=== PATIENT | male | born 2000 | race African-American/Black ===

== ENCOUNTER 2024-08-01 15:01 | Emergency (ER) | payer OTHER, SELFPAY ==
[2024-08-01 15:17] VITALS: BP 118/74; PULSE 69; RESP 16; TEMP 36.7; O2SAT 100
--- NOTE | 2024-08-01 16:09 | ED.EAR ---
HPI - Ear Problem General Chief complaint: Ear Stated complaint: Ear Pain Time Seen by Provider: 08/01/24 15:33 Source: patient and RN notes reviewed Mode of arrival: ambulatory Limitations: no limitations History of Present Illness HPI Narrative: Patient presents today complaining of left ear pain x months worse over the last week. He also reports some itching and muffled hearing as well as headache. Denies fever, drainage, or any additional symptoms. He has tried Tylenol without relief. Related Data Allergies Allergy/AdvReac Type Severity Reaction Status Date / Time No Known Allergies Allergy Verified 08/01/24 16:09 Review of Systems Review of Systems: CONSTITUTIONAL: Denies body aches, fever, chills, or sweats. EYES: Denies visual changes, redness, or discharge. ENT: Denies rhinorrhea, congestion, sore throat. + left ear pain CARDIOVASCULAR: Denies chest pain, palpitations, or edema. RESPIRATORY: Denies cough or dyspnea. GASTROINTESTINAL: Denies abdominal pain, nausea, vomiting, or diarrhea. GENITOURINARY: Denies dysuria or hematuria. SKIN: Denies rash, itching, or wounds. MUSCULOSKELETAL: Denies back pain, joint pain, or myalgia. NEUROLOGIC: Denies headache, numbness, tingling, or weakness. PSYCH: Denies depression or anxiety. PMFSH Comments At time of signature, I have reviewed and agree with nursing past medical, surgical, social and family history unless otherwise noted. Please see nursing chart for further information. There is no relevant family history pertinent to the presenting complaint Exam Narrative: GENERAL: Well-appearing, well-nourished, and in no acute distress. HEAD: Normocephalic, atraumatic. EYES: EOMI. No redness or drainage. Conjunctivae normal. ENT: Mucous membranes pink and moist. Nares clear. No rhinorrhea. + left cerumen impaction. No movement or tragal tenderness. NECK: Normal AROM. Supple. No lymphadenopathy. CHEST: No respiratory distress. EXTREMITIES: Normal range of motion. No edema. SKIN: Warm, dry, no rash. Capillary refill normal. Normal skin turgor. NEURO: No focal deficits. Alert and oriented x3. Gait steady. PSYCH: Normal affect. No signs of depression or anxiety. Course Course Level of Care: Express Care Visit Vital Signs Vital signs: Vital Signs Temperature 98.1 F 08/01/24 15:17 Pulse Rate 69 08/01/24 15:17 Respiratory Rate 16 08/01/24 15:17 Blood Pressure 118/74 08/01/24 15:17 Pulse Oximetry 100 08/01/24 15:17 Temperature 98.1 F 08/01/24 15:17 Pulse Rate 69 08/01/24 15:17 Respiratory Rate 16 08/01/24 15:17 Blood Pressure 118/74 08/01/24 15:17 Pulse Oximetry 100 08/01/24 15:17 Reviewed Procedures Ear Wax Removal Left Ear: Ear Wax Removal Date: 08/01/24 Ear Wax Removal Time: 16:11 Results: Re-examined: cerumen removed completely TM Examination: TM(s) intact, normal appearance Ear Canal Exam: atraumatic Patient Tolerated Procedure: well Complications: no problems Technique: ear canal irrigated Medical Decision Making MDM Narrative Medical decision making narrative: Cerumen impaction was removed from left ear. Patient states symptoms have improved but not fully resolve. Prescription for ofloxacin and Medrol Dosepak sent to pharmacy. Anticipatory guidance given. Differential Diagnosis Differential Diagnosis: Otitis media, otitis externa, ruptured TM, serous otitis, cerumen impaction Vital Signs Vital Signs: Vital Signs Temperature 98.1 F 08/01/24 15:17 Pulse Rate 69 08/01/24 15:17 Respiratory Rate 16 08/01/24 15:17 Blood Pressure 118/74 08/01/24 15:17 Pulse Oximetry 100 08/01/24 15:17 Temperature 98.1 F 08/01/24 15:17 Pulse Rate 69 08/01/24 15:17 Respiratory Rate 16 08/01/24 15:17 Blood Pressure 118/74 08/01/24 15:17 Pulse Oximetry 100 08/01/24 15:17 Critical Care Time Critical Care Time Critical Care Time: No Discharge Plan Discharge Clinical Impression: Impacted cerumen of left ear Patient Disposition: Home Condition: Stable Additional Instructions: Ear wax was removed from your left ear. Please use the ear drops and steroid pack as prescribed. Follow-up with your PCP as needed. Take Tylenol or ibuprofen for pain. Patient Language: Irish Prescriptions: New ofloxacin 0.3 % drops 10 drp EACH EAR DAILY 7 Days Qty: 5 0RF methylprednisolone [Medrol (Tyler)] 4 mg tablets,dose pack See Rx Instructions .ROUTE .COMPLEX Qty: 21 0RF Rx Instructions: orally per package directions Follow-up/Referrals: PHYSICIAN,CONTINUOUS IMPROVEMENT COORDINATOR [Primary Care Provider] - Time of Disposition: 16:13
== END 2024-08-01 16:16 | disposition home or self-care (01) ==
PROVIDERS: Emergency Provider Nurse Practitioner
DX: H61.22 Impacted cerumen, left ear (principal)
CPT/HCPCS: 69209; 99213; A9270; G0463